=== PATIENT | female | born 1970 | race Two or more races ===

== ENCOUNTER 2019-04-25 18:39 | Emergency (ER) | payer OTHER ==
[~2019-04-25] VITALS: Ht 149.9 cm; Wt 68.0 kg
[2019-04-25 19:10] VITALS: BP 159/99
[2019-04-25] MEDS ORDERED: CIPR7.5D LEFT EAR (20:09)
--- NOTE | 2019-04-25 20:10 | PHYS DOC ---
Past Medical History Past Medical History: Anxiety, Depression, Hypertension, Schizophrenia Past Surgical History: No Surgical History Alcohol Use: None Drug Use: None Adult General Chief Complaint Chief Complaint: EARACHE/EAR PAIN HPI HPI Patient is a 48 year old female who presents with patient states she can hear about moving in her left ear since Wednesday. Patient states she does not have any pain. She states she can hear make noises. Patient states she tried to get it out Q-tips. Review of Systems Review of Systems HENT: Denies nasal congestion or sore throat. Left ear bug[] All other systems were reviewed and found to be within normal limits, except as documented in this note. Allergies Allergies Allergies Coded Allergies Type Severity Reaction Last Updated Verified No Known Drug Allergies 04/25/19 No Physical Exam Physical Exam Constitutional: Well developed, well nourished, no acute distress, non-toxic appearance. [] HENT: Normocephalic, atraumatic, bilateral external ears normal, oropharynx moist, no oral exudates, nose normal. Left ear canal is reddened. Dickinson in Left ear. [] Neurologic: Alert and oriented X 3, normal motor function, normal sensory function, no focal deficits noted. [] Psychologic: Affect normal, judgement normal, mood normal. [] Current Patient Data Vital Signs Vital Signs Date Time Temp Pulse Resp B/P (MAP) Pulse Ox O2 Delivery O2 Flow Rate FiO2 04/25/19 19:10 97.6 80 16 159/99 (119) 99 Room Air 97.6 EKG EKG [] Radiology/Procedures Radiology/Procedures [] Course & Med Decision Making Course & Med Decision Making There is redness to the inner ear and there is a cricket seen the very back of the ear against the eardrum. It does not appear to be alive. There is no drainage in the ear. Nursing staff have irrigated the ear to try to irrigate the bug out. I have used a curette and removed a small cricket from the ear. Dragon Disclaimer Dragon Disclaimer This electronic medical record was generated, in whole or in part, using a voice recognition dictation system. Departure Departure Impression: Primary Impression: Foreign body in ear Disposition: 01 HOME, SELF-CARE Condition: STABLE Referrals: LADI HDZ MD (PCP) Patient Instructions: Ear Foreign Body Additional Instructions: Follow up with primary care if needed. Use medication as provided. Scripts Ciprofloxacin Hcl/Dexameth (CIPRODEX OTIC SUSPENSION) 7.5 Ml Drops.susp 4 DROP LEFT EAR BID for 7 Days, #7.5 ML Prov: CHITO HOOKER APRN 04/25/19 Problem Qualifiers Primary Impression: Foreign body in ear Encounter type: initial encounter Laterality: left Qualified Codes: T16.2XXA - Foreign body in left ear, initial encounter CHITO HOOKER APRN Apr 25, 2019 20:10
== END 2019-04-25 20:16 | disposition home or self-care (01) ==
LOC: ER 18:39
DX: T16.2XXA Foreign body in left ear, initial encounter (principal); F20.9 Schizophrenia, unspecified; I10 Essential (primary) hypertension; X58.XXXA Exposure to other specified factors, initial encounter; Y93.89 Activity, other specified; Y92.89 Other specified places as the place of occurrence of the external cause; Y99.8 Other external cause status
CPT/HCPCS: 69200; 99284